=== PATIENT | female | born 1990 | race Hispanic/Latino ===

== ENCOUNTER 2023-05-26 02:18 | Emergency (ER) | payer MEDICAID, SELFPAY ==
[2023-05-26] MEDS ORDERED: Proparacaine 0.5% Opth 15 ML BOT ONE (02:32)
[2023-05-26] MEDS ORDERED: Fluorescein Opthalmic Strip ONE (02:42)
== END 2023-05-26 03:20 | disposition home or self-care (01) ==
LOC: ERS 02:18
DX: S05.01XA Injury of conjunctiva and corneal abrasion without foreign body, right eye, initial encounter (principal); S05.02XA Injury of conjunctiva and corneal abrasion without foreign body, left eye, initial encounter; X58.XXXA Exposure to other specified factors, initial encounter; Z75.8 Other problems related to medical facilities and other health care
CPT/HCPCS: 99283